=== PATIENT | female | born 1955 | race Caucasian/White ===

== ENCOUNTER 2017-12-15 13:25 | Emergency (ER) | payer OTHER ==
[~2017-12-15] VITALS: Ht 165.1 cm; Wt 76.2 kg
[2017-12-15] MEDS ORDERED: ACETAMINOPHEN-1 EAC1 PO (14:21)
[2017-12-15 14:54] LABS: ABSOLUTE NEUTROPHILS 4.9 thou/uL (1.4-8.2); BASOPHILS 1.2 % (0.0-2.0); EOSINOPHILS 1.4 % (0.0-3.0); HEMATOCRIT 43.7 % (37.0-47.0); HEMOGLOBIN 15.2 gm/dL (12.0-15.0); LYMPHOCYTES 30.5 % (24.0-44.0); MCH 32.1 pg (26.0-34.0); MCHC 34.7 g/dL (28.0-37.0); MCV 92.3 fL (80.0-100.0); MONOCYTES 10.2 % (1.0-8.0); PLATELET COUNT 320 thou/uL (150-400); POLYS 56.7 % (36.0-66.0); RBC 4.73 mil/uL (4.20-5.00); RDW 12.3 % (10.5-14.5); WBC 8.7 thou/uL (4.0-11.0)
[2017-12-15 15:02] LABS: CALCIUM 9.9 mg/dL (8.5-10.1); CREATININE 0.7 mg/dL (0.6-1.0); POTASSIUM 3.6 mmol/L (3.5-5.1)
== END 2017-12-15 21:34 | disposition short-term general hospital (02) ==
LOC: ER 13:25
PROVIDERS: Physician Assistant
DX: C79.49 Secondary malignant neoplasm of other parts of nervous system (principal); R53.1 Weakness; Z88.1 Allergy status to other antibiotic agents